=== PATIENT | male | born 1935 | race Caucasian/White ===

== ENCOUNTER → 2017-01-03 | Outpatient (CLI) | payer OTHER ==
[~2017-01-03] VITALS: Ht 182.9 cm; Wt 108.9 kg
[~2017-01-03] MED LIST: ALEVE220 MG PO; ALPHA LIPOIC A600 MG PO; ASPIRIN325 PO; CELEBREX 200 M200 MG PO; CHROMIUM PICO400 MCG PO; CO Q-10100 MG PO; CRESTOR20 MG PO; DHEA25 MG SUBLING; DICLOFENAC SODI75 MG PO; FISH OIL 1,2001 EAC4 PO; FLOMAX0.4 MG PO; HYDROCHLOROTH12.5 M1 PO; HYDROCODON-ACE1 EAC7 PO; HYDROCODONE-AP1 EAC6 PO; LEVOTHROID88 MCG PO; LIPITOR 20 MG T20 M1 PO; LISINOPRIL20 MG PO; MEDROLDOSEPACK PO; METOPROLOL SUC100 MG PO; MULTI-VITAMIN1 EAC5 PO; NORCO 5-325 TA1 EACH PO; NORVASC5 MG PO; OXYCODONE-ACET1 EAC2 PO; PLAVIX 75 MG TA75 M1 PO; PROBENECID500 MG PO; SAME PO; TOPROL XL50 MG PO; VITAMIN D1000 UNI1 PO; ZESTORETIC 20-1 EACH PO; ZINC PICOLINAT1 EACH PO; ZOCOR 20 MG TAB20 M1 PO; [UNRECOGNIZED DRUG - OTHER]; [UNRECOGNIZED DRUG - OTHER] PO
--- NOTE | ~2017-01-03 | HPC ---
[facility] [place] [address] PAIN MANAGEMENT CONSULTATION Name: ISABELLA MCGARRY Room #: [facility]#: [id number] Admission: 01/03/17 Attend Phys: Jody Maldonado MD Discharge: Date of : 39 Report #: [id number] THIS REPORT FOR: //name// CC: Gerry Maldonado DATE OF SERVICE: 01/03/2017 CHIEF COMPLAINT: Low back pain and pain down the sciatic nerve, both legs and to calves. HISTORY OF PRESENT ILLNESS: The patient is a 81-year-old gentleman who has been seen in the pain clinic in the past because of lumbar radiculopathy. This was back in 2013. He has had surgery since we saw him last. He is experiencing pain and discomfort, which is radiating down into the lower portion of his back into both buttocks and into his legs. Left side is more problematic than the right. He rates it as a 4-5. Standing causes shooting and aching discomfort. Walking and playing golf can be problematic. He has some difficulty change from a sitting position to a standing position. He notes that his medications are sometimes helpful as well as his exercise. He would like to proceed with another epidural steroid injection to help decrease his pain and discomfort. ALLERGIES: PENICILLIN. MEDICATIONS: Lipitor 20 mg, lisinopril 40 mg, hydrochlorothiazide 12.5 mg, Benemid 500 mg, levothyroxine 0.088 mg, metoprolol 100 mg, Flomax 0.4 mg, Trospium 60 mg, vitamin D3, fish oil, glucosamine sulfate, Aleve, aspirin one tablet daily, GSH, diclofenac 25 mg b.i.d., amlodipine 5 mg daily. PAST MEDICAL HISTORY: 1. Borderline diabetes. 2. Hypertension. 3. Heart disease, has [address] in his heart. 4. Hepatitis. 5. Joint disease/arthritis. PAST SURGICAL HISTORY: Microdiskectomy, 12/2013 and elbow surgery in 1964. 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 Denies the use of tobacco. Drinks 1-2 alcoholic beverages per day. REVIEW OF SYSTEMS: Questionnaire in the chart indicates generally good health, fatigue, weakness, wears glasses, heart trouble, complications, frequent urination, awakens at night to urinate, memory loss, confusion, excessive thirst/urination. [facility] [address] [place] [address] PAIN MANAGEMENT CONSULTATION Name: ISABELLA MCGARRY Room #: [facility]#: [id number] Admission: 01/03/17 Attend Phys: Jody Maldonado MD Discharge: Date of : 39 Report #: [id number] LABORATORY DATA: MRI of the lumbar spine dated 11/08/2016 reveals: 1. L2-L3, moderate degenerative loss of disk height identified with moderate exercise disk bulge, increased from previously. Bilateral recesses are partially effaced. The left foramen is mild narrowed and right foramen is moderately narrowed. Thecal sac is 0.7 cm in AP. 2. L3-L4, mild degenerative loss of height. Moderate size disk bulge at this level. AP extent of approximately 0.5 cm. Lateral recesses are partially effaced and both foramen narrowed moderately. Thecal sac 0.6 cm in AP. 3. L4-L5, moderate degenerative loss of disk height identified. Moderate size disk bulge is increased from previous. Dorsal epidural prominent fat decreased as the thecal sac midline AP diameter. The lateral recesses are effaced, particularly on the left. The left foramen is moderately narrowed and right foramen is mildly narrowed. Advanced degenerative facet changes are present. Thecal sac 0.4 cm in AP. 4. L5-S1, developmentally small disk identified. Small diffuse posterior disk bulging identified with mild bilateral foraminal narrowing. Thecal sac 1.1 cm in AP. IMPRESSION: 1. Lumbar radiculopathy with pain radiating down into the sciatic nerve bilaterally involving both calves. 2. Cardiac history with history of four stents in his heart. 3. Hypothyroidism. 4. Hypertension. 5. BPH type symptoms. 6. Hypercholesterolemia. RECOMMENDATIONS: We discussed treatment options with the patient. Risks and benefits of an epidural steroid injection were discussed. Possible complications were reviewed and that the patient has undergone surgery. We will evaluate for transforaminal epidural steroid placement. He will return to the pain clinic at which time treatment will be performed. We would like to thank you for letting us participate in his care. We hope he continues to improve. By: [id number] Jody Maldonado MD /JOLEEN
[2017-01-03 13:44] VITALS: BP 143/81
== END | disposition home or self-care (01) ==
LOC: PAIN 07:27
DX: M54.16 Radiculopathy, lumbar region (principal); M54.5 Low back pain; Z88.8 Allergy status to other drugs, medicaments and biological substances; I11.0 Hypertensive heart disease with heart failure; I50.9 Heart failure, unspecified; K75.9 Inflammatory liver disease, unspecified; M19.90 Unspecified osteoarthritis, unspecified site; Z98.890 Other specified postprocedural states; Z95.1 Presence of aortocoronary bypass graft; E03.9 Hypothyroidism, unspecified; E78.00 Pure hypercholesterolemia, unspecified

== ENCOUNTER → 2017-01-05 | Outpatient (CLI) | payer OTHER ==
[~2017-01-05] VITALS: Ht 182.9 cm; Wt 108.9 kg
--- NOTE | ~2017-01-05 | HPC ---
[facility] [place] [address] PAIN MANAGEMENT CONSULTATION Name: ISABELLA MCGARRY Room #: [facility]#: [id number] Admission: 01/05/17 Attend Phys: Jody Maldonado MD Discharge: Date of : 39 Report #: [id number] THIS REPORT FOR: //name// CC: Gerry Maldonado DATE OF SERVICE: 01/05/2017 FOLLOWUP COMPLAINT: Here for another injection. FOLLOWUP HISTORY: The patient is a 81-year-old gentleman who has been seen in the pain clinic because of lumbar radicular pain. He has undergone epidural steroid injections and gleaned benefits from these. He returns today for another injection. He continues to have pain and discomfort, which is radiating down his left back with pain down into both buttocks. Left is more problematic than the right. He notes some numbness and tingling in his legs as well. He describes it as an aching, shooting, numbness, tingling sensation with fatigue and weakness. He rates it as 5-6. Pain is worse while standing, walking, playing golf, and getting up and out of chair. He would like to proceed with another epidural steroid injection. PHYSICAL EXAMINATION: Blood pressure 144/75, pulse 63, respiratory rate 14, room air saturation 95%. Height 6 feet, weight 182 pounds, BMI is 32. The patient continues to have pain and discomfort radiating down the L4-L5 distribution of the left low back area. RECOMMENDATIONS: We discussed treatment options with the patient. Risks and benefits of an epidural steroid injection were again discussed. Possible complications, which are but not limited to infection, increased muscle soreness, headache, bleeding, muscle trauma, nerve trauma. The patient elects to proceed. PROCEDURE NOTE: The patient was placed in the prone position. Fluoroscopy was used to identify the L4-L5 interspace. This area had been sterilely prepped with Betadine and infiltrated with 0.25% bupivacaine. A total of 80 mg Depo-Medrol, 40 mg triamcinolone, and 2 mL of 0.5% bupivacaine was injected. The patient tolerated the procedure well. There were no complications. He will follow up in the future as needed. We would like to thank you for letting us participate in his care. We hope he continues to improve. <ELECTRONICALLY SIGNED> By: Jody Maldonado MD 03/22/17 [id number] Jody Maldonado MD /[facility]
[2017-01-05 08:54] VITALS: BP 144/75
== END | disposition home or self-care (01) ==
LOC: PAIN 07:08
DX: M54.16 Radiculopathy, lumbar region (principal); Z68.32 Body mass index [BMI] 32.0-32.9, adult